=== PATIENT | female | born 1960 | race Caucasian/White ===

== ENCOUNTER 2017-01-02 15:50 | Emergency (ER) | payer BC ==
[~2017-01-02 15:50] MED LIST: ACETAMINOPHEN-H1 TA1; AMITRIPTYLINE H50 M1; ANASTROZOLE1 MG; BACTRIM DS 8001 TAB PO; CLONAZEPAM0.5 MG; LORAZEPAM0.5 M1; SERTRALINE HYD100 MG; VALACYCLOVIR H500 M1
[2017-01-02] MEDS ORDERED: ZOLOFT 100MG100 MG PO (15:57)
[2017-01-02] MEDS ORDERED: KLONOPIN 0.5MG0.5 MG PO (15:57)
[2017-01-02] MEDS ORDERED: AMITRIPTYLINE H50 M1 PO (15:57)
[2017-01-02] MEDS ORDERED: ARIMIDEX1 MG PO (15:58)
[2017-01-02] MEDS ORDERED: KEFLEX250 M1 PO (19:11)
[2017-01-02 19:29] VITALS: BP 134/80
== END 2017-01-02 19:29 | disposition home or self-care (01) ==
LOC: ED 15:50
DX: N30.90 Cystitis, unspecified without hematuria (principal); Z87.440 Personal history of urinary (tract) infections; Z85.3 Personal history of malignant neoplasm of breast
CPT/HCPCS: J7030

== ENCOUNTER 2019-08-14 00:49 | Emergency (ER) | payer OTHER, MEDICARE ==
[~2019-08-14] VITALS: Ht 157.5 cm; Wt 76.8 kg
[~2019-08-14 00:49] MED LIST changes: +AMITRIPTYLINE H50 M1 PO; +ARIMIDEX1 MG PO; +KEFLEX250 M1 PO; +KLONOPIN 0.5MG0.5 MG PO; +ZOLOFT 100MG100 MG PO
[2019-08-14] MEDS ORDERED: EFFEXOR XR150 M1 PO (00:59)
[2019-08-14] MEDS ORDERED: MELOXICAM7.5 MG PO (01:00)
[2019-08-14 02:06] LABS: HEMATOCRIT 44.7 % (37.0-47.0); HEMOGLOBIN 15.2 g/dL (12.5-16.0); MEAN CELL VOLUME 90 fl (78-100); MEAN CORPUSCULAR HEMOGLOBIN 31 pg (27-31); MEAN CORPUSCULAR HGB CONC 34 g/dL (33-37); MEAN PLATELET VOLUME 8.9 fl (7.4-10.4); PLATELET COUNT 200 K/mm3 (130-400); RED BLOOD COUNT 4.96 M/mm3 (4.10-5.30); RED CELL DISTRIBUTION WIDTH 12.6 % (11.5-14.5)
[2019-08-14 02:17] LABS: ALBUMIN 4.4 g/dL (3.5-5.0)
[2019-08-14 02:18] LABS: CALCIUM 9.8 mg/dL (8.3-10.5)
[2019-08-14 02:20] LABS: TOTAL PROTEIN 8.5 g/dL (6.4-8.3)
[2019-08-14 02:21] LABS: TOTAL BILIRUBIN 0.5 mg/dL (0.2-1.2)
[2019-08-14 02:27] LABS: LYMPHOCYTE 18 % (20-51); MONOCYTE 12 % (3-10); NEUTROPHILS 68 % (42-75)
[2019-08-14 02:31] LABS: PARTIAL THROMBOPLASTIN TIME 25.5 SECONDS (21.0-32.0); PROTHROMBIN TIME 9.6 SECONDS (9.0-12.0)
[2019-08-14 03:09] VITALS: BP 173/100
== END 2019-08-14 03:11 | disposition short-term general hospital (02) ==
LOC: ED 00:49
PROVIDERS: Physician Assistant
DX: S06.5X9A Traumatic subdural hemorrhage with loss of consciousness of unspecified duration, initial encounter (principal); F41.9 Anxiety disorder, unspecified; F32.9 Major depressive disorder, single episode, unspecified; F17.210 Nicotine dependence, cigarettes, uncomplicated; Z85.3 Personal history of malignant neoplasm of breast; Z88.6 Allergy status to analgesic agent; W54.1XXA Struck by dog, initial encounter; W01.10XA Fall on same level from slipping, tripping and stumbling with subsequent striking against unspecified object, initial encounter; Y92.009 Unspecified place in unspecified non-institutional (private) residence as the place of occurrence of the external cause
CPT/HCPCS: J3010